=== PATIENT | male | born 1940 | race African-American/Black ===

== ENCOUNTER 2020-08-10 21:09 | Inpatient (IN) ==
[2020-08-10] MEDS ORDERED: Ipratropium/Albuterol Neb 3 ML IH ONE (21:27)
[2020-08-10] MEDS ORDERED: methylPREDNISolone 125 MG/2 ML VIAL IVP ONE (21:28)
[2020-08-10 21:36] LABS: ABG Base Excess -6 mEq/L (-2 to 3); ABG HCO3 16 mEq/L (21-27); ABG Oxygen Saturation 89 % (95-98); ABG PCO2 24 mmHg (35-45); ABG PH 7.44 pH Units (7.32-7.45); ABG PO2 53 mmHg (85-104); ABG TCO2 17 mEq/L (20-26)
[2020-08-10 21:45] LABS: Basophils % 0.3 %; Eosinophils % 0.1 %; Hematocrit 39.1 % (37.5-50.1); Hemoglobin 13.2 g/dL (12.9-16.9); Immature Granulocytes % 1.2 % (0-4); Lymphocytes # 0.5 K/mcL (0.6-4.6); Lymphocytes % 3.7 %; Mean Corpuscular HGB Conc 33.8 g/dL (31.6-35.5); Mean Corpuscular Hemoglobin 30.4 pg (28.0-33.3); Mean Corpuscular Volume 90.1 fL (83.0-100.0); Mean Platelet Volume 10.5 fL (9.4-12.4); Monocytes # 0.5 K/mcL (0.0-1.3); Monocytes % 3.4 %; Nucleated Red Blood Cells 0.6 /100 WBC (0); Platelet Count 322 K/mcL (140-400); Red Blood Count 4.34 M/mcL (4.19-5.50); Red Cell Distribution Width 14.8 % (11.5-14.5); Segmented Neutrophils % 91.3 %
[2020-08-10 21:46] LABS: Neutrophils # 12.8 K/mcL (1.6-8.9)
[2020-08-10 22:08] LABS: Toxic Granulation Present (Not Present)
[2020-08-10 22:10] LABS: Albumin 3.2 g/dL (3.5-5.7); Albumin/Globulin Ratio 0.7 (1.1-2.2); Bilirubin,Direct 0.7 mg/dL (0.0-0.2); Bilirubin,Indirect 0.9 mg/dL (0.0-1.0); Bilirubin,Total 1.6 mg/dL (0.3-1.0); Calcium 8.8 mg/dL (8.6-10.3); Globulin 4.6 g/dL (2.4-3.5); Potassium 3.8 mEq/L (3.5-5.1); Total Protein 7.8 g/dL (6.4-8.9); Troponin I 0.11 ng/mL (< 0.04)
[2020-08-10] MEDS ORDERED: Piperacillin/Tazobactam 3.375 GM in 0.9 % Sodium Chloride Mini Bag 100 ML IVPB ONE (22:16)
[2020-08-10] MEDS ORDERED: Vancomycin 1,750 MG/517.5 ML IV.SOLN IVPB ONE (22:17)
[2020-08-10 23:13] LABS: Activated Partial Thrombo Time 50.7 Seconds (26.0-36.0)
[2020-08-10 23:29] LABS: INR 8.6; Prothrombin Time 98.3 Seconds (9.4-12.1)
[2020-08-10 23:49] LABS: Amorphous Sediment,Urine Few per hpf (None-Few); Bacteria,Urine Few per hpf (None-Few); Bilirubin,Urine Negative (Negative); Blood,Urine Moderate (Negative); Clarity,Urine Turbid (Clear); Color,Urine Yellow (Yellow); Glucose,Urine (UA) Normal (Normal); Ketones,Urine Negative (Negative); Leukocyte Esterase,Urine Negative (Negative); Mucus,Urine Few per lpf (None-Few); Nitrite,Urine Negative (Negative); Protein,Urine 100 mg/dL (Neg-Trace); Specific Gravity,Urine 1.018 (1.010-1.025); Squamous Epithelial Cell,Urine Few per hpf (None-Few); Urobilinogen,Urine Normal (Normal)
[2020-08-11] MEDS ORDERED: 0.9 % Sodium Chloride 500 ML IVC ONE (00:29)
[2020-08-11 00:57] LABS: Adenovirus Not Detected (Not Detect); Bordetella Pertussis Not Detected (Not Detect); Chlamydophila pneumoniae Not Detected (Not Detect); Coronavirus 229E Not Detected (Not Detect); Coronavirus HKU1 Not Detected (Not Detect); Coronavirus NL63 Not Detected (Not Detect); Coronavirus OC43 Not Detected (Not Detect); Human Metapneumovirus Not Detected (Not Detect); Human Rhinovirus/Enterovirus Not Detected (Not Detect); Influenza A Subtype 2009 H1 Not Detected (Not Detect); Influenza B Not Detected (Not Detect); Mycoplasma pneumoniae Not Detected (Not Detect); Parainfluenza Virus 1 Not Detected (Not Detect); Parainfluenza Virus 2 Not Detected (Not Detect); Parainfluenza Virus 3 Not Detected (Not Detect); Parainfluenza Virus 4 Not Detected (Not Detect); Respiratory Syncytial Virus Not Detected (Not Detect); SARS-CoV-2 DETECTED (Not Detect)
[2020-08-11] MEDS ORDERED: Naloxone 0.4 MG/ML INJ IVP PRN (04:26)
[2020-08-11] MEDS ORDERED: 0.9 % Sodium Chloride 1,000 ML IVC SCH ×2 (04:30→08:48)
[2020-08-11] MEDS ORDERED: Vancomycin 1 EACH in 0.9 % Sodium Chloride 250 ML IVPB PRN (05:00)
[2020-08-11 05:02] LABS: Basophils % 0.2 %; Hematocrit 34.7 % (37.5-50.1); Immature Granulocytes % 1.4 % (0-4); Lymphocytes # 0.4 K/mcL (0.6-4.6); Lymphocytes % 2.8 %; Mean Corpuscular HGB Conc 33.4 g/dL (31.6-35.5); Mean Corpuscular Hemoglobin 30.9 pg (28.0-33.3); Mean Corpuscular Volume 92.3 fL (83.0-100.0); Mean Platelet Volume 10.3 fL (9.4-12.4); Monocytes % 1.9 %; Neutrophils # 12.2 K/mcL (1.6-8.9); Nucleated Red Blood Cells 0.2 /100 WBC (0); Platelet Count 269 K/mcL (140-400); Red Blood Count 3.76 M/mcL (4.19-5.50); Red Cell Distribution Width 15.3 % (11.5-14.5); Segmented Neutrophils % 93.7 %
[2020-08-11 05:15] LABS: Hemoglobin 11.6 g/dL (12.9-16.9); Monocytes # 0.3 K/mcL (0.0-1.3)
[2020-08-11 05:30] LABS: Albumin 2.8 g/dL (3.5-5.7); Albumin/Globulin Ratio 0.7 (1.1-2.2); Bilirubin,Total 1.1 mg/dL (0.3-1.0); Calcium 8.6 mg/dL (8.6-10.3); Potassium 3.6 mEq/L (3.5-5.1); Total Protein 6.8 g/dL (6.4-8.9); Troponin I 0.09 ng/mL (< 0.04)
[2020-08-11 05:38] LABS: INR 10.2; Prothrombin Time 116.1 Seconds (9.4-12.1)
[2020-08-11 06:05] LABS: Platelet Estimate Normal (Normal); Toxic Granulation Present (Not Present)
[2020-08-11] MEDS ORDERED: Piperacillin/Tazobactam 3.375 GM in 0.9 % Sodium Chloride Mini Bag 100 ML IVPB SCH ×2 (08:00→12:00)
[2020-08-11] MEDS ORDERED: D5% in Water 1,000 ML IVC PRN (08:30)
[2020-08-11] MEDS ORDERED: *HR* Dextrose 50 % in Water (Vial) 50 ML VIAL IVP PRN (08:30)
[2020-08-11] MEDS ORDERED: Dextrose Gel 15 GM/37.5 ML TUBE PO PRN ×2 (08:30)
[2020-08-11] MEDS ORDERED: Dexamethasone 4 MG/ML VIAL IVP SCH (09:00)
[2020-08-11 09:40] LABS: C-Reactive Protein 281 mg/L (Less than 10); Lactate Dehydrogenase 869 Units/L (140-271)
[2020-08-11 09:57] LABS: Ferritin 774 ng/mL (20-250)
[2020-08-11] MEDS: Ipratropium 1 PUFF INHALER IH SCH ×3 (10:42→21:24)
[2020-08-11] MEDS: Insulin LISPRO 300 UNITS/3 ML VIAL SQ SCH ×3 (12:34→21:28)
[2020-08-11] MEDS ORDERED: 0.9 % Sodium Chloride 500 ML ONE (15:39)
[2020-08-11] MEDS: Albumin 25% 25gram/100mL 25 GM/100 ML IV.SOLN IVPB SCH ×2 (16:42→22:21)
[2020-08-11] MEDS ORDERED: Warfarin perPT PO PRN (18:00)
[2020-08-12] MEDS ORDERED: Vancomycin 1,250 MG/262.5 ML IV.SOLN IVPB ONE
[2020-08-12] MEDS: Cefepime HCl 1,000 MG in Water for inj. (sterile) 10 ML IVP SCH (00:16)
[2020-08-12] MEDS: Ipratropium 1 PUFF INHALER IH SCH ×4 (03:50→21:39)
[2020-08-12 04:36] LABS: Prothrombin Time 23.1 Seconds (9.4-12.1)
[2020-08-12 04:43] LABS: Basophils % 0.1 %; Hemoglobin 10.2 g/dL (12.9-16.9); Nucleated Red Blood Cells 0.6 /100 WBC (0)
[2020-08-12 04:45] LABS: Hematocrit 31.4 % (37.5-50.1); Immature Granulocytes % 2.3 % (0-4); Immature Platelets 5.5 % (1.1-6.1); Lymphocytes # 0.3 K/mcL (0.6-4.6); Lymphocytes % 1.7 %; Mean Corpuscular HGB Conc 32.5 g/dL (31.6-35.5); Mean Corpuscular Hemoglobin 29.9 pg (28.0-33.3); Mean Corpuscular Volume 92.1 fL (83.0-100.0); Mean Platelet Volume 10.3 fL (9.4-12.4); Monocytes # 0.5 K/mcL (0.0-1.3); Monocytes % 2.9 %; Platelet Count 187 K/mcL (140-400); Red Blood Count 3.41 M/mcL (4.19-5.50); Red Cell Distribution Width 15.4 % (11.5-14.5); White Blood Count 17.2 K/mcL (4.3-11.1)
[2020-08-12 04:59] LABS: Albumin 3.3 g/dL (3.5-5.7); Phosphorous 4.7 mg/dL (2.7-4.5); Potassium 3.3 mEq/L (3.5-5.1)
[2020-08-12] MEDS: Multivit/Ca/Min/Fe/FA 1 TAB TABLET PO SCH (09:00)
[2020-08-12] MEDS: Insulin LISPRO 300 UNITS/3 ML VIAL SQ SCH ×4 (09:00→20:42)
[2020-08-12] MEDS: Dexamethasone 4 MG/ML VIAL IVP SCH (09:01)
[2020-08-12] MEDS: Albumin 25% 25gram/100mL 25 GM/100 ML IV.SOLN IVPB SCH (09:03)
[2020-08-12] MEDS ORDERED: 0.9 % Sodium Chloride 500 ML ONE (12:11)
[2020-08-12] MEDS ORDERED: *HR* Warfarin 2.5 MG TABLET PO ONE (18:00)
[2020-08-13] MEDS: Cefepime HCl 1,000 MG in Water for inj. (sterile) 10 ML IVP SCH ×2 (00:19→23:49)
[2020-08-13] MEDS ORDERED: *HR* Propofol 200 MG/20 ML VIAL IVP ONE (02:39)
[2020-08-13] MEDS ORDERED: *HR* Rocuronium Bromide 50 MG/5 ML VIAL IVP ONE (02:39)
[2020-08-13] MEDS: Ipratropium 1 PUFF INHALER IH SCH ×4 (03:27→22:07)
[2020-08-13 06:08] LABS: Mean Corpuscular HGB Conc 32.6 g/dL (31.6-35.5); Nucleated Red Blood Cells 1.6 /100 WBC (0); Red Cell Distribution Width 16.9 % (11.5-14.5)
[2020-08-13 06:10] LABS: Hematocrit 33.7 % (37.5-50.1); Immature Platelets 5.8 % (1.1-6.1); Mean Corpuscular Hemoglobin 29.6 pg (28.0-33.3); Mean Corpuscular Volume 90.8 fL (83.0-100.0); Platelet Count 106 K/mcL (140-400); Red Blood Count 3.71 M/mcL (4.19-5.50); White Blood Count 18.3 K/mcL (4.3-11.1)
[2020-08-13 06:15] LABS: INR 4.1
[2020-08-13 06:17] LABS: Prothrombin Time 45.9 Seconds (9.4-12.1)
[2020-08-13 06:25] LABS: Calcium 8.5 mg/dL (8.6-10.3); Potassium 3.9 mEq/L (3.5-5.1)
[2020-08-13 07:24] LABS: Lymphocytes # 2.2 K/mcL (0.6-4.6); Monocytes # 0.7 K/mcL (0.0-1.3); Neutrophils # 15.4 K/mcL (1.6-8.9)
[2020-08-13 07:25] LABS: Platelet Estimate Decreased (Normal)
[2020-08-13 08:03] LABS: Ferritin 1237 ng/mL (20-250); Lactate Dehydrogenase 1379 Units/L (140-271)
[2020-08-13] MEDS: Dexamethasone 4 MG/ML VIAL IVP SCH (08:12)
[2020-08-13] MEDS: Insulin LISPRO 300 UNITS/3 ML VIAL SQ SCH ×3 (08:13→16:45)
[2020-08-13] MEDS: Multivit/Ca/Min/Fe/FA 1 TAB TABLET PO SCH (08:14)
[2020-08-13] MEDS ORDERED: 0.9 % Sodium Chloride 1,000 ML IVC SCH (09:00)
[2020-08-13 09:03] LABS: C-Reactive Protein 160 mg/L (Less than 10)
[2020-08-13] MEDS ORDERED: Albumin 25% 25gram/100mL 25 GM/100 ML IV.SOLN ONE (10:52)
[2020-08-13] MEDS: FentaNYL (PF) 1,000 MCG/100 ML IV.SOLN IVC SCH ×2 (11:20→19:42)
[2020-08-13] MEDS ORDERED: Albumin 25% 25gram/100mL 25 GM/100 ML IV.SOLN IVPB ONE (11:25)
[2020-08-13] MEDS ORDERED: Artificial Tears SOLN 15 ML BOTTLE BOTH EYES PRN (11:28)
[2020-08-13] MEDS ORDERED: Cisatracurium 200 MG in 0.9 % Sodium Chloride 180 ML IVC SCH (11:30)
[2020-08-13] MEDS ORDERED: Pantoprazole 40 MG VIAL IVP SCH (11:30)
[2020-08-13 12:18] LABS: ABG Base Excess -12 mEq/L (-2 to 3); ABG HCO3 20 mEq/L (21-27); ABG Oxygen Saturation 100 % (95-98); ABG PCO2 82 mmHg (35-45); ABG PO2 282 mmHg (85-104); ABG TCO2 23 mEq/L (20-26); Blood Gas Modality ASSIST CONTROL; Blood Gas VT 420 cc
[2020-08-13] MEDS ORDERED: Dexamethasone 10 MG/ML MDV IVP ONE (12:30)
[2020-08-13] MEDS ORDERED: Dexamethasone 4 MG/ML VIAL IVP ONE (12:45)
[2020-08-13] MEDS: Artificial Tears SOLN 15 ML BOTTLE BOTH EYES SCH ×4 (12:58→23:19)
[2020-08-13] MEDS ORDERED: 0.9 % Sodium Chloride 500 ML ONE (13:23)
[2020-08-13] MEDS ORDERED: Sodium Bicarbonate 50 MEQ/50 ML VIAL IVP ONE (13:24)
[2020-08-13 14:09] LABS: ABG Base Excess -8 mEq/L (-2 to 3); ABG HCO3 23 mEq/L (21-27); ABG Oxygen Saturation 99 % (95-98); ABG PCO2 83 mmHg (35-45); ABG PH 7.05 pH Units (7.32-7.45); ABG PO2 167 mmHg (85-104); ABG TCO2 25 mEq/L (20-26); Blood Gas Modality ASSIST CONTROL; Blood Gas VT 420 cc
[2020-08-13] MEDS: Phenylephrine 20 MG in 0.9 % Sodium Chloride 250 ML IVC SCH ×2 (14:30→16:01)
[2020-08-13] MEDS: Norepinephrine 4 MG/254 ML IV.SOLN IVC SCH ×2 (14:55→17:37)
[2020-08-13] MEDS ORDERED: Vasopressin 40 UNIT in D5% in Water 100 ML IVC SCH (15:15)
[2020-08-13] MEDS ORDERED: Midazolam HCl 50 MG/100 ML IV.SOLN IVC SCH (15:15)
[2020-08-13 15:20] LABS: ABG Base Excess -9 mEq/L (-2 to 3); ABG HCO3 22 mEq/L (21-27); ABG Oxygen Saturation 99 % (95-98); ABG PCO2 76 mmHg (35-45); ABG PH 7.06 pH Units (7.32-7.45); ABG PO2 231 mmHg (85-104); ABG TCO2 24 mEq/L (20-26); Blood Gas Modality ASSIST CONTROL; Blood Gas VT 450 cc
[2020-08-13] MEDS ORDERED: *HR* Heparin 5,000 UNIT/ML VIAL ONE (15:34)
[2020-08-13] MEDS ORDERED: Heparin 1,000 UNITS/500 mL 500 ML ONE (15:39)
[2020-08-13] MEDS: Sodium Bicarbonate 150 MEQ in D5% in Water 500 ML IVC SCH ×2 (15:58→22:00)
[2020-08-13 17:43] LABS: INR 4.3
[2020-08-13 17:46] LABS: VBG Ionized Calcium 0.99 mmol/L (1.15-1.35)
[2020-08-13 17:50] LABS: Prothrombin Time 47.4 Seconds (9.4-12.1)
[2020-08-13 17:51] LABS: ABG Base Excess -4 mEq/L (-2 to 3); ABG HCO3 24 mEq/L (21-27); ABG Oxygen Saturation 90 % (95-98); ABG PCO2 57 mmHg (35-45); ABG PH 7.22 pH Units (7.32-7.45); ABG PO2 71 mmHg (85-104); ABG TCO2 25 mEq/L (20-26); Blood Gas Modality ASSIST CONTROL; Blood Gas VT 500 cc
[2020-08-13] MEDS ORDERED: Calcium Gluconate 1gm/50mL 1 GM/50 ML BAG IVPB PRN (17:57)
[2020-08-13] MEDS ORDERED: *HR* Heparin 5,000 UNIT/ML VIAL HE PRN (17:57)
[2020-08-13] MEDS ORDERED: 0.9 % Sodium Chloride 1,000 ML PRIME SCH (18:00)
[2020-08-13] MEDS ORDERED: Calcium Chloride 4,000 MG in 0.9 % Sodium Chloride 1,000 ML CRRT SCH (18:00)
[2020-08-13] MEDS ORDERED: SODIUM CHLORIDE 0.9% IVC SCH (18:15)
[2020-08-13] MEDS ORDERED: PHENYLEPHRINE IVC SCH (18:15)
[2020-08-13 18:18] LABS: Albumin 3.2 g/dL (3.5-5.7); Albumin/Globulin Ratio 1.1 (1.1-2.2); Bilirubin,Total 3.8 mg/dL (0.3-1.0); Calcium 7.7 mg/dL (8.6-10.3); Magnesium 2.6 mg/dL (1.6-2.6); Phosphorous 7.7 mg/dL (2.7-4.5); Potassium 4.8 mEq/L (3.5-5.1); Total Protein 6.2 g/dL (6.4-8.9)
[2020-08-13] MEDS ORDERED: Phenylephrine 50 MG in 0.9 % Sodium Chloride 250 ML IVC SCH (19:00)
[2020-08-13] MEDS: PrismaSATE BGK 4/2.5 5,000 ML CRRT SCH ×4 (19:28→23:47)
[2020-08-13] MEDS: Norepinephrine 8 MG in 0.9 % Sodium Chloride 250 ML IVC SCH (19:30)
[2020-08-13] MEDS ORDERED: 0.9 % Sodium Chloride 2,000 ML ONE (20:24)
[2020-08-13] MEDS ORDERED: Chlorhexidine Rinse 15 ML MOUTHWASH MM SCH (21:00)
[2020-08-13] MEDS ORDERED: Budesonide/Formoterol 160/4.5 1 PUFF INH IH SCH (22:00)
[2020-08-13 23:34] LABS: VBG Ionized Calcium 0.97 mmol/L (1.15-1.35)
[2020-08-13] MEDS: Calcium Gluconate 1gm/50mL 1 GM/50 ML BAG IVPB PRN (23:46)
[2020-08-14] MEDS ORDERED: Insulin LISPRO 300 UNITS/3 ML VIAL SQ SCH
[2020-08-14] MEDS: Norepinephrine 8 MG in 0.9 % Sodium Chloride 250 ML IVC SCH (00:23)
[2020-08-14 01:12] VITALS: BP 89/60
[2020-08-14 01:29] LABS: VBG Ionized Calcium 0.99 mmol/L (1.15-1.35)
[2020-08-14] MEDS: Calcium Gluconate 1gm/50mL 1 GM/50 ML BAG IVPB PRN (01:33)
[2020-08-14] MEDS: Ipratropium 1 PUFF INHALER IH SCH (03:41)
== END 2020-08-14 02:40 | disposition expired | DRG 871 ==
LOC: EMEROOARM 21:09 → 2NENU 21:09 → SUATTDRO 08-11 10:28
PROVIDERS: ADMIT Student in an Organized Health Care Education/Training Program; ATTEND Family Medicine